=== PATIENT | female | born 1960 | race Two or more races ===

== ENCOUNTER 2022-10-16 16:19 | Inpatient (IN) | payer OTHER ==
[2022-10-16] MEDS ORDERED: ACETAMINOPHEN 1000 MG/100 ML BAG IVPB ONE (17:41)
[2022-10-16 17:49] LABS: BASO % 0.5 % (0-2.0); EOS % 2.4 % (0-4.5); HEMOGLOBIN 10.5 GM/dL (10.7-15.3); LYMPH % 20.9 % (8-40); MCH 29.2 pg (25.7-33.7); MEAN PLT VOLUME 8.4 fl (7.5-11.1); MONO % 7.4 % (3.8-10.2); NEUT % 68.8 % (42.8-82.8); PLATELET COUNT 240 10^3/uL (134-434); RDW 14.2 % (11.6-15.6); WHITE BLOOD COUNT 7.8 K/mm3 (4.0-10.0)
[2022-10-16] MEDS ORDERED: ACETAMINOPHEN INJECTION 100 ML IVPB ONE (17:51)
[2022-10-16] MEDS ORDERED: guaiFENesin 600 MG TABLET.ER (FP) PO ONE (18:21)
[2022-10-16 18:26] LABS: CALCIUM 9.1 mg/dL (8.5-10.1)
[2022-10-16 18:27] LABS: ALBUMIN 3.2 g/dl (3.4-5.0); BLOOD UREA NITROGEN 46.4 mg/dL (7-18); MAGNESIUM 1.9 mg/dL (1.8-2.4)
[2022-10-16 18:30] LABS: CREATININE 1.6 mg/dL (0.55-1.3)
[2022-10-16 18:31] LABS: BILIRUBIN,TOTAL 0.4 mg/dL (0.2-1); TOT PROT 6.8 g/dl (6.4-8.2)
[2022-10-16 20:06] LABS: INR 0.97 (0.83-1.09); PROTHROMBIN TIME (PATIENT) 11.2 SEC (9.7-13.0)
[2022-10-16 20:08] LABS: ACTIVATED PTT 27.9 SECONDS (25.2-36.5)
[2022-10-16 20:13] LABS: PHOSPHOROUS 3.5 mg/dL (2.5-4.9)
[2022-10-16 20:18] LABS: N-TERMINAL BNP 4097.7 pg/ml (5-125)
[2022-10-16] MEDS ORDERED: LISINOPRIL 10 MG TABLET ONE (22:20)
[2022-10-16] MEDS ORDERED: HEPARIN NA (PORCINE) 5,000 UNITS/ML 1ML VIAL ONE (22:20)
[2022-10-16] MEDS: HEPARIN NA (PORCINE) 5,000 UNITS/ML 1ML VIAL SQ SCH (22:30)
[2022-10-16] MEDS: LISINOPRIL 10 MG TABLET PO SCH (22:30)
[2022-10-16 23:02] LABS: RETICULOCYTES 0.98 % (0.5-1.5)
[2022-10-17 01:26] LABS: COCAINE, UR NEGATIVE (NEGATIVE); METHADONE, UR NEGATIVE (NEGATIVE); OPIATES, URI NEGATIVE (NEGATIVE); PHENCYCLIDINE,URINE NEGATIVE (NEGATIVE); URINE AMPHETAMINES NEGATIVE (NEGATIVE); URINE APPEARANCE CLEAR; URINE BARBITURATES NEGATIVE (NEGATIVE); URINE BENZODIAZEPINES NEGATIVE (NEGATIVE); URINE BILIRUBIN NEGATIVE (NEGATIVE); URINE COLOR YELLOW; URINE GLUCOSE (UA) 1+ (NEGATIVE); URINE KETONE NEGATIVE (NEGATIVE); URINE LEUK ESTERASE NEGATIVE (NEGATIVE); URINE NITRITE NEGATIVE (NEGATIVE); URINE PROTEIN NEGATIVE (NEGATIVE); URINE UROBILINOGEN 0.2 mg/dL (0.2-1.0)
[2022-10-17] MEDS: INSULIN SLIDING SCALE (NOVOLOG) 1 VIAL SQ SCH ×3 (06:15→16:54)
[2022-10-17 06:36] LABS: HEMATOCRIT 31.9 % (32.4-45.2); HEMOGLOBIN 10.9 GM/dL (10.7-15.3); MCH 29.4 pg (25.7-33.7); MCHC 34.3 g/dl (32.0-36.0); MEAN CELL VOLUME 85.6 fl (80-96); MEAN PLT VOLUME 8.3 fl (7.5-11.1); PLATELET COUNT 249 10^3/uL (134-434); RBC 3.72 M/mm3 (3.60-5.2); WHITE BLOOD COUNT 4.6 K/mm3 (4.0-10.0)
[2022-10-17 07:06] LABS: CALCIUM 9.3 mg/dL (8.5-10.1)
[2022-10-17 07:07] LABS: ALBUMIN 3.1 g/dl (3.4-5.0); BLOOD UREA NITROGEN 40.9 mg/dL (7-18)
[2022-10-17 07:09] LABS: PHOSPHOROUS 3.9 mg/dL (2.5-4.9)
[2022-10-17 07:10] LABS: CREATININE 1.5 mg/dL (0.55-1.3)
[2022-10-17 07:11] LABS: BILIRUBIN,TOTAL 0.6 mg/dL (0.2-1); TOT PROT 6.7 g/dl (6.4-8.2)
[2022-10-17] MEDS: HEPARIN NA (PORCINE) 5,000 UNITS/ML 1ML VIAL SQ SCH (09:57)
[2022-10-17] MEDS: LISINOPRIL 10 MG TABLET PO SCH (09:58)
[2022-10-17] MEDS ORDERED: LIDOCAINE 5% TOPICAL PATCH TP SCH (10:00)
[2022-10-17] MEDS ORDERED: NICOTINE 7 MG/24 HOURS TOPICAL PATCH TD SCH (10:00)
[2022-10-17] MEDS ORDERED: guaiFENesin 600 MG TABLET.ER (FP) PO ONE (12:01)
[2022-10-17] MEDS ORDERED: LIDOCAINE PATCH REMOVAL MC SCH (22:00)
[2022-10-17] MEDS ORDERED: HEPARIN NA (PORCINE) 5,000 UNITS/ML 1ML VIAL SQ SCH (22:00)
[2022-10-18] MEDS: INSULIN SLIDING SCALE (NOVOLOG) 1 VIAL SQ SCH ×3 (06:01→16:40)
[2022-10-18] MEDS ORDERED: ONDANSETRON 4 MG/2 ML VIAL IVPUSH PRN ×2 (07:25→09:35)
[2022-10-18] MEDS ORDERED: oxyCODONE HCL 5 MG TABLET PO PRN (07:25)
[2022-10-18] MEDS ORDERED: LIDOCAINE HCL 1%, 10 MG/ML (10ML VIAL) MDV ONE (07:34)
[2022-10-18] MEDS ORDERED: BUPIVACAINE HCL/PF 0.5% (5MG/ML) 10 ML VIAL ONE (07:34)
[2022-10-18] MEDS ORDERED: GENTAMICIN SO4 80 MG/2 ML VIAL ONE (07:34)
[2022-10-18] MEDS ORDERED: MIDAZOLAM HCL 2 MG/2 ML SINGLE DOSE VIAL ONE (08:03)
[2022-10-18] MEDS ORDERED: ceFAZolin SODIUM 1 GM VIAL IVPB ONE ×2 (08:05)
[2022-10-18] MEDS ORDERED: LIDOCAINE 1% P/F 10 MG/ML VIAL INF ONE ×2 (08:25)
[2022-10-18] MEDS ORDERED: BUPIVACAINE HCL/PF 0.5% (5 MG/ML) 30 ML VIAL IJ ONE ×2 (08:25)
[2022-10-18] MEDS: LISINOPRIL 10 MG TABLET PO SCH (11:21)
[2022-10-18] MEDS: LIDOCAINE 5% TOPICAL PATCH TP SCH (11:22)
[2022-10-18] MEDS: NICOTINE 7 MG/24 HOURS TOPICAL PATCH TD SCH (11:22)
[2022-10-18 12:54] LABS: HEMATOCRIT 33.5 % (32.4-45.2); HEMOGLOBIN 11.3 GM/dL (10.7-15.3); MCH 29.4 pg (25.7-33.7); MCHC 33.8 g/dl (32.0-36.0); MEAN CELL VOLUME 86.8 fl (80-96); MEAN PLT VOLUME 8.4 fl (7.5-11.1); PLATELET COUNT 258 10^3/uL (134-434); RBC 3.85 M/mm3 (3.60-5.2); RDW 14.2 % (11.6-15.6); WHITE BLOOD COUNT 5.5 K/mm3 (4.0-10.0)
[2022-10-18 13:51] LABS: ALBUMIN 3.1 g/dl (3.4-5.0); BLOOD UREA NITROGEN 48.5 mg/dL (7-18); CALCIUM 8.8 mg/dL (8.5-10.1)
[2022-10-18 13:54] LABS: CREATININE 1.6 mg/dL (0.55-1.3)
[2022-10-18 13:56] LABS: BILIRUBIN,TOTAL 0.5 mg/dL (0.2-1)
[2022-10-18 13:59] LABS: TOT PROT 6.8 g/dl (6.4-8.2)
[2022-10-18 14:04] VITALS: BMI 16.7
[2022-10-18 14:47] LABS: CREATININE, URINE RANDOM < 13.0 mg/dL (30-150)
[2022-10-18] MEDS: oxyCODONE HCL 5 MG TABLET PO PRN ×2 (16:28→21:31)
[2022-10-18] MEDS: LIDOCAINE PATCH REMOVAL MC SCH (21:30)
[2022-10-18] MEDS ORDERED: LIDOCAINE PATCH REMOVAL MC SCH (22:00)
[2022-10-19] MEDS: INSULIN SLIDING SCALE (NOVOLOG) 1 VIAL SQ SCH ×3 (06:14→17:09)
[2022-10-19 07:24] LABS: BASO % 0.5 % (0-2.0); HEMATOCRIT 32.3 % (32.4-45.2); HEMOGLOBIN 11.2 GM/dL (10.7-15.3); LYMPH % 25.1 % (8-40); MCH 29.7 pg (25.7-33.7); MCHC 34.6 g/dl (32.0-36.0); MEAN CELL VOLUME 85.7 fl (80-96); MEAN PLT VOLUME 9.5 fl (7.5-11.1); MONO % 10.2 % (3.8-10.2); NEUT % 60.2 % (42.8-82.8); PLATELET COUNT 233 10^3/uL (134-434); RBC 3.77 M/mm3 (3.60-5.2); RDW 13.7 % (11.6-15.6); WHITE BLOOD COUNT 6.6 K/mm3 (4.0-10.0)
[2022-10-19 07:47] LABS: CALCIUM 9.3 mg/dL (8.5-10.1)
[2022-10-19 07:48] LABS: BLOOD UREA NITROGEN 48.8 mg/dL (7-18); MAGNESIUM 2.1 mg/dL (1.8-2.4)
[2022-10-19 07:50] LABS: PHOSPHOROUS 3.6 mg/dL (2.5-4.9); TOT PROT 6.6 g/dl (6.4-8.2)
[2022-10-19 07:51] LABS: CREATININE 1.5 mg/dL (0.55-1.3)
[2022-10-19 07:52] LABS: BILIRUBIN,TOTAL 0.5 mg/dL (0.2-1)
[2022-10-19] MEDS: LIDOCAINE 5% TOPICAL PATCH TP SCH (09:07)
[2022-10-19] MEDS: NICOTINE 7 MG/24 HOURS TOPICAL PATCH TD SCH (09:07)
[2022-10-19] MEDS: LISINOPRIL 10 MG TABLET PO SCH (09:07)
[2022-10-19] MEDS ORDERED: LISINOPRIL 20 MG TABLET PO SCH (09:43)
[2022-10-19] MEDS: CHLORTHALIDONE 25 MG TABLET PO SCH (10:04)
[2022-10-19] MEDS ORDERED: ACETAMINOPHEN 1000 MG/100 ML BAG IVPB ONE ×2 (20:16)
[2022-10-19] MEDS ORDERED: MELATONIN 5 MG TABLETS PO ONE (20:21)
[2022-10-19] MEDS: LIDOCAINE PATCH REMOVAL MC SCH (21:28)
[2022-10-20] MEDS: INSULIN SLIDING SCALE (NOVOLOG) 1 VIAL SQ SCH ×3 (06:06→16:56)
[2022-10-20] MEDS ORDERED: BENZONATATE 200 MG CAPSULE PO PRN (08:15)
[2022-10-20 08:52] LABS: BLOOD UREA NITROGEN 62.3 mg/dL (7-18); CALCIUM 9.6 mg/dL (8.5-10.1)
[2022-10-20 08:56] LABS: CREATININE 1.8 mg/dL (0.55-1.3)
[2022-10-20] MEDS: NICOTINE 7 MG/24 HOURS TOPICAL PATCH TD SCH (09:30)
[2022-10-20] MEDS: LIDOCAINE 5% TOPICAL PATCH TP SCH (09:30)
[2022-10-20] MEDS: CHLORTHALIDONE 25 MG TABLET PO SCH (09:33)
[2022-10-20] MEDS ORDERED: ALBUTEROL SO4 2.5/IPRATROPIUM 0.5 INH SOL 3 ML VIAL.NEB. NEB ONE (09:40)
[2022-10-20] MEDS ORDERED: guaiFENesin 600 MG TABLET.ER (FP) PO SCH (10:00)
[2022-10-20] MEDS: POLYETHYLENE GLYCOL (HEALTHYLAX) 3350 17 GM PACKET PO SCH ×2 (10:06→21:14)
[2022-10-20 10:19] LABS: BASO % 0.6 % (0-2.0); EOS % 4.7 % (0-4.5); HEMATOCRIT 31.4 % (32.4-45.2); HEMOGLOBIN 10.5 GM/dL (10.7-15.3); LYMPH % 32.5 % (8-40); MCH 28.9 pg (25.7-33.7); MCHC 33.5 g/dl (32.0-36.0); MEAN CELL VOLUME 86.1 fl (80-96); MEAN PLT VOLUME 9.7 fl (7.5-11.1); MONO % 10.4 % (3.8-10.2); NEUT % 51.8 % (42.8-82.8); PLATELET COUNT 215 10^3/uL (134-434); RBC 3.64 M/mm3 (3.60-5.2); RDW 14.1 % (11.6-15.6); WHITE BLOOD COUNT 4.8 K/mm3 (4.0-10.0)
[2022-10-20] MEDS ORDERED: BENZONATATE 100 MG CAPSULE PO PRN (10:19)
[2022-10-20] MEDS ORDERED: ALBUTEROL SO4 2.5/IPRATROPIUM 0.5 INH SOL 3 ML VIAL.NEB. NEB PRN (11:19)
[2022-10-20] MEDS: LIDOCAINE PATCH REMOVAL MC SCH (21:14)
[2022-10-20] MEDS ORDERED: ACETAMINOPHEN 1000 MG/100 ML BAG IVPB ONE (21:39)
[2022-10-20] MEDS: MELATONIN 5 MG TABLETS PO PRN (22:01)
[2022-10-21] MEDS: INSULIN SLIDING SCALE (NOVOLOG) 1 VIAL SQ SCH ×3 (06:08→17:01)
[2022-10-21] MEDS ORDERED: INSULIN SLIDING SCALE (NOVOLOG) 1 VIAL SQ ONE (06:27)
[2022-10-21 08:52] LABS: BASO % 0.9 % (0-2.0); EOS % 4.5 % (0-4.5); HEMATOCRIT 29.8 % (32.4-45.2); HEMOGLOBIN 10.5 GM/dL (10.7-15.3); LYMPH % 23.7 % (8-40); MCH 30.1 pg (25.7-33.7); MCHC 35.2 g/dl (32.0-36.0); MEAN CELL VOLUME 85.6 fl (80-96); MONO % 11.6 % (3.8-10.2); NEUT % 59.3 % (42.8-82.8); PLATELET COUNT 228 10^3/uL (134-434); RBC 3.48 M/mm3 (3.60-5.2); RDW 13.6 % (11.6-15.6); WHITE BLOOD COUNT 5.7 K/mm3 (4.0-10.0)
[2022-10-21 09:06] VITALS: RESP 18
[2022-10-21 09:26] LABS: BLOOD UREA NITROGEN 69.2 mg/dL (7-18); CALCIUM 9.3 mg/dL (8.5-10.1); MAGNESIUM 2.5 mg/dL (1.8-2.4)
[2022-10-21 09:29] LABS: CREATININE 1.8 mg/dL (0.55-1.3)
[2022-10-21 09:30] LABS: PHOSPHOROUS 4.7 mg/dL (2.5-4.9)
[2022-10-21] MEDS: CHLORTHALIDONE 25 MG TABLET PO SCH (09:30)
[2022-10-21] MEDS: POLYETHYLENE GLYCOL (HEALTHYLAX) 3350 17 GM PACKET PO SCH ×2 (09:30→22:09)
[2022-10-21 09:31] LABS: BILIRUBIN,TOTAL 0.7 mg/dL (0.2-1); TOT PROT 6.6 g/dl (6.4-8.2)
[2022-10-21] MEDS: LIDOCAINE 5% TOPICAL PATCH TP SCH (09:31)
[2022-10-21] MEDS: NICOTINE 7 MG/24 HOURS TOPICAL PATCH TD SCH (09:31)
[2022-10-21] MEDS: guaiFENesin 600 MG TABLET.ER (FP) PO SCH (21:35)
[2022-10-21] MEDS: MELATONIN 5 MG TABLETS PO PRN (21:35)
[2022-10-21] MEDS ORDERED: INSULIN (NOVOLOG) ASPART 100 UNITS/ML 10ML VIAL SQ ONE (21:51)
[2022-10-21] MEDS: LIDOCAINE PATCH REMOVAL MC SCH (22:09)
[2022-10-21] MEDS: ACETAMINOPHEN 325 MG TABLET (FP) PO PRN (22:14)
[2022-10-21] MEDS ORDERED: BENZONATATE 200 MG CAPSULE PO PRN (23:36)
[2022-10-22] MEDS: ACETAMINOPHEN 325 MG TABLET (FP) PO PRN ×2 (02:58→11:17)
[2022-10-22] MEDS: INSULIN SLIDING SCALE (NOVOLOG) 1 VIAL SQ SCH ×3 (06:37→17:09)
[2022-10-22] MEDS: guaiFENesin 600 MG TABLET.ER (FP) PO SCH (09:17)
[2022-10-22] MEDS: POLYETHYLENE GLYCOL (HEALTHYLAX) 3350 17 GM PACKET PO SCH (09:17)
[2022-10-22] MEDS: NICOTINE 7 MG/24 HOURS TOPICAL PATCH TD SCH (09:18)
[2022-10-22] MEDS: CHLORTHALIDONE 25 MG TABLET PO SCH (09:18)
[2022-10-22] MEDS: LIDOCAINE 5% TOPICAL PATCH TP SCH (09:20)
[2022-10-22] MEDS ORDERED: SODIUM CHLORIDE 1 GM TABLET PO SCH (10:30)
[2022-10-22] MEDS ORDERED: amLODIPine BESYLATE 5 MG TABLET (FP) PO SCH (10:30)
[2022-10-22] MEDS ORDERED: predniSONE 20 MG TABLET (UD) PO SCH (14:15)
[2022-10-22] MEDS ORDERED: ALBUTEROL SO4 HFA INHALER IH PRN (14:45)
[2022-10-22 15:57] VITALS: BP 120/78; PULSE 80; TEMP 98
[2022-10-22] MEDS ORDERED: BUDESONIDE/FORMETEROL FUMARATE 80/4.5 mcg INHALER IH SCH (22:00)
== END 2022-10-22 19:34 | DRG 171 ==
LOC: JER 16:19 → JERBED 18:08 → J4S 10-17 02:58
PROVIDERS: ADMIT Internal Medicine; ATTEND Internal Medicine
PROC: 02H63JZ Insertion of Pacemaker Lead into Right Atrium, Percutaneous Approach (ICD-10-PCS; 2022-10-18)
PROC: 02HK3JZ Insertion of Pacemaker Lead into Right Ventricle, Percutaneous Approach (ICD-10-PCS; 2022-10-18)
PROC: 0JH606Z Insertion of Pacemaker, Dual Chamber into Chest Subcutaneous Tissue and Fascia, Open Approach (ICD-10-PCS; principal; 2022-10-18 07:30)
DX: I44.2 Atrioventricular block, complete (principal); D64.9 Anemia, unspecified; F17.210 Nicotine dependence, cigarettes, uncomplicated; N18.9 Chronic kidney disease, unspecified; J45.909 Unspecified asthma, uncomplicated; E11.65 Type 2 diabetes mellitus with hyperglycemia; K59.00 Constipation, unspecified; I12.9 Hypertensive chronic kidney disease with stage 1 through stage 4 chronic kidney disease, or unspecified chronic kidney disease; E11.22 Type 2 diabetes mellitus with diabetic chronic kidney disease; N18.2 Chronic kidney disease, stage 2 (mild); E87.1 Hypo-osmolality and hyponatremia; M25.552 Pain in left hip; Z79.84 Long term (current) use of oral hypoglycemic drugs
CPT/HCPCS: 0241U-QW; 36415; 71045-TC-FY; 71046-TC-FY; 72170-TC-FY; 76000-TC-FY; 80048; 80053; 80061; 80307; 81003; 82550; 82570; 82962; 83036; 83540; 83550; 83735; 83880; 84100; 84156; 84443; 84484; 85025; 85027; 85045; 85610; 85730; 86618; 93005; 93010; 93306-TC; 94010; 94640; 94760; 97116-GP; 97161-GP; 99285-25; C1769; C1785; C1898; C9803-CS; J1644; U0003; U0005

== ENCOUNTER 2022-12-18 22:49 | Inpatient (IN) | payer OTHER ==
[2022-12-18 23:35] VITALS: BMI 22.1
[2022-12-19 00:37] LABS: BASO % 0.6 % (0-2.0); EOS % 3.3 % (0-4.5); HEMATOCRIT 25.7 % (32.4-45.2); HEMOGLOBIN 9.1 GM/dL (10.7-15.3); LYMPH % 17.2 % (8-40); MCH 29.1 pg (25.7-33.7); MCHC 35.5 g/dl (32.0-36.0); MEAN CELL VOLUME 82.1 fl (80-96); MEAN PLT VOLUME 7.1 fl (7.5-11.1); MONO % 11.5 % (3.8-10.2); NEUT % 67.4 % (42.8-82.8); PLATELET COUNT 220 10^3/uL (134-434); RBC 3.13 M/mm3 (3.60-5.2); RDW 13.7 % (11.6-15.6)
[2022-12-19 00:59] LABS: CHLORIDE 78 mmol/L (98-107)
[2022-12-19 01:01] LABS: ALBUMIN 3.7 g/dl (3.4-5.0); BLOOD UREA NITROGEN 43.6 mg/dL (7-18); CALCIUM 9.1 mg/dL (8.5-10.1); CO2 25 mmol/L (21-32); GLUCOSE,RANDOM 66 mg/dL (74-106)
[2022-12-19 01:04] LABS: CREATININE 1.6 mg/dL (0.55-1.3); SGOT/AST 37 U/L (15-37); SGPT/ALT 25 U/L (13-61)
[2022-12-19 01:06] LABS: BILIRUBIN,TOTAL 0.7 mg/dL (0.2-1)
[2022-12-19 01:07] LABS: ALK PHOS 95 U/L (45-117)
[2022-12-19 01:15] LABS: ANION GAP 13 MMOL/L (8-16); SODIUM 117 mmol/L (136-145)
[2022-12-19] MEDS ORDERED: SODIUM CHLORIDE 1,000 ML IV SCH ×2 (03:00→04:03)
[2022-12-19] MEDS ORDERED: ACETAMINOPHEN 1000 MG/100 ML BAG IVPB ONE (03:38)
[2022-12-19] MEDS: KCL 10 MEQ IVPB 10 MEQ/100 ML INFUS.BAG IVPB SCH ×2 (04:41→07:29)
[2022-12-19] MEDS ORDERED: guaiFENesin/D-M SUGAR-FREE/ACLHOL-FREE (200 MG/10 MG) 5 ML PO PRN (06:10)
[2022-12-19] MEDS ORDERED: ALBUTEROL SO4 2.5/IPRATROPIUM 0.5 INH SOL 3 ML VIAL.NEB. NEB SCH (06:15)
[2022-12-19 06:22] LABS: PHOSPHOROUS 3.5 mg/dL (2.5-4.9)
[2022-12-19 07:41] LABS: INR 0.98 (0.83-1.09); PROTHROMBIN TIME (PATIENT) 11.4 SEC (9.7-13.0)
[2022-12-19 07:43] LABS: ACTIVATED PTT 29.6 SECONDS (25.2-36.5)
[2022-12-19] MEDS ORDERED: ALBUTEROL SO4 2.5/IPRATROPIUM 0.5 INH SOL 3 ML VIAL.NEB. NEB PRN (09:24)
[2022-12-19] MEDS ORDERED: LIDOCAINE 5% TOPICAL PATCH TP SCH (10:00)
[2022-12-19] MEDS ORDERED: LIDOCAINE REMOVAL MC SCH (10:00)
[2022-12-19] MEDS: LOSARTAN POTASSIUM 25 MG TABLET PO SCH (10:27)
[2022-12-19] MEDS: ACETAMINOPHEN 325 MG TABLET (FP) PO PRN ×2 (10:27→19:58)
[2022-12-19 10:55] LABS: POTASSIUM 3.5 mmol/L (3.5-5.1)
[2022-12-19 10:59] LABS: ALBUMIN 3.4 g/dl (3.4-5.0); BLOOD UREA NITROGEN 43.6 mg/dL (7-18); MAGNESIUM 2.3 mg/dL (1.8-2.4)
[2022-12-19 11:02] LABS: CREATININE 1.6 mg/dL (0.55-1.3); PHOSPHOROUS 3.6 mg/dL (2.5-4.9)
[2022-12-19 11:04] LABS: TOT PROT 6.4 g/dl (6.4-8.2)
[2022-12-19] MEDS: ALBUTEROL SO4 2.5/IPRATROPIUM 0.5 INH SOL 3 ML VIAL.NEB. NEB SCH ×3 (11:30→20:42)
[2022-12-19] MEDS ORDERED: FUROSEMIDE 40 MG/4 ML INJECTABLE VIAL IVPUSH ONE (12:21)
[2022-12-19] MEDS: GABAPENTIN 100 MG CAPSULE PO SCH ×2 (14:21→21:35)
[2022-12-19] MEDS: SODIUM CHLORIDE 1 GM TABLET PO SCH ×2 (14:21→21:35)
[2022-12-19 15:35] LABS: EPI CELLS 2 /uL (0-25.1); HYALINE CASTS 0 /uL (0-3.1); PH,URINE 6.5 (5.0-8.0); URINE APPEARANCE CLEAR; URINE BACTERIA 6 /uL (0-1359); URINE BILIRUBIN NEGATIVE (NEGATIVE); URINE COLOR YELLOW; URINE GLUCOSE (UA) NEGATIVE (NEGATIVE); URINE KETONE NEGATIVE (NEGATIVE); URINE LEUK ESTERASE TRACE (NEGATIVE); URINE NITRITE NEGATIVE (NEGATIVE); URINE PROTEIN NEGATIVE (NEGATIVE); URINE RBC 211 /uL (0-23.9); URINE UROBILINOGEN 0.2 mg/dL (0.2-1.0); URINE WBC 4 /uL (0-25.8)
[2022-12-19] MEDS: MELATONIN 1 MG TABLET PO SCH (21:35)
[2022-12-19] MEDS ORDERED: PATIENT'S OWN MEDICATION (NON-FORMULARY) (Lidocaine Patch Removal 1 EACH Each) MC SCH (22:00)
[2022-12-19] MEDS ORDERED: LIDOCAINE PATCH REMOVAL MC SCH ×3 (22:00)
[2022-12-20] MEDS: GABAPENTIN 100 MG CAPSULE PO SCH ×3 (05:43→21:38)
[2022-12-20] MEDS: ALBUTEROL SO4 2.5/IPRATROPIUM 0.5 INH SOL 3 ML VIAL.NEB. NEB SCH ×4 (07:15→20:47)
[2022-12-20 07:27] LABS: BASO % 0.5 % (0-2.0); HEMOGLOBIN 8.9 GM/dL (10.7-15.3); LYMPH % 18.4 % (8-40); MCH 29.8 pg (25.7-33.7); MCHC 35.7 g/dl (32.0-36.0); MEAN CELL VOLUME 83.5 fl (80-96); MEAN PLT VOLUME 8.1 fl (7.5-11.1); MONO % 11.9 % (3.8-10.2); NEUT % 66.2 % (42.8-82.8); PLATELET COUNT 199 10^3/uL (134-434); RDW 13.4 % (11.6-15.6); WHITE BLOOD COUNT 5.9 K/mm3 (4.0-10.0)
[2022-12-20 07:49] LABS: BLOOD UREA NITROGEN 43.1 mg/dL (7-18); CALCIUM 9.1 mg/dL (8.5-10.1)
[2022-12-20 07:53] LABS: CREATININE 1.7 mg/dL (0.55-1.3)
[2022-12-20] MEDS: LOSARTAN POTASSIUM 25 MG TABLET PO SCH (09:29)
[2022-12-20] MEDS: SODIUM CHLORIDE 1 GM TABLET PO SCH ×2 (09:29→21:38)
[2022-12-20] MEDS: ACETAMINOPHEN 325 MG TABLET (FP) PO PRN ×2 (11:39→21:38)
[2022-12-20] MEDS ORDERED: POTASSIUM CHLORIDE ORAL LIQUID 20 MEQ/15 ML PO ONE ×2 (14:00→17:00)
[2022-12-20] MEDS ORDERED: FUROSEMIDE 40 MG/4 ML INJECTABLE VIAL IVPUSH ONE (14:06)
[2022-12-20] MEDS ORDERED: SODIUM CHLORIDE 250 ML IV STA (14:07)
[2022-12-20 18:16] LABS: POTASSIUM 3.8 mmol/L (3.5-5.1)
[2022-12-20 18:17] LABS: CALCIUM 9.2 mg/dL (8.5-10.1)
[2022-12-20 18:18] LABS: BLOOD UREA NITROGEN 42.6 mg/dL (7-18)
[2022-12-20] MEDS: MELATONIN 1 MG TABLET PO SCH (21:38)
[2022-12-21] MEDS: GABAPENTIN 100 MG CAPSULE PO SCH ×3 (05:32→21:54)
[2022-12-21] MEDS: ACETAMINOPHEN 325 MG TABLET (FP) PO PRN ×2 (05:32→11:24)
[2022-12-21 07:08] LABS: POTASSIUM 3.6 mmol/L (3.5-5.1)
[2022-12-21 07:14] LABS: BLOOD UREA NITROGEN 45.3 mg/dL (7-18)
[2022-12-21 07:17] LABS: CREATININE 1.8 mg/dL (0.55-1.3)
[2022-12-21] MEDS: ALBUTEROL SO4 2.5/IPRATROPIUM 0.5 INH SOL 3 ML VIAL.NEB. NEB SCH ×4 (08:15→20:27)
[2022-12-21] MEDS: SODIUM CHLORIDE 1 GM TABLET PO SCH ×2 (09:10→21:54)
[2022-12-21] MEDS: LOSARTAN POTASSIUM 25 MG TABLET PO SCH (09:10)
[2022-12-21] MEDS ORDERED: FUROSEMIDE 20 MG TABLET (FP) PO ONE (12:54)
[2022-12-21] MEDS ORDERED: SODIUM CHLORIDE 500 ML IV STA (12:54)
[2022-12-21 13:13] LABS: POTASSIUM 3.6 mmol/L (3.5-5.1)
[2022-12-21 13:15] LABS: BLOOD UREA NITROGEN 42.8 mg/dL (7-18)
[2022-12-21 13:18] LABS: CREATININE 1.8 mg/dL (0.55-1.3)
[2022-12-21] MEDS ORDERED: POTASSIUM CHLORIDE ORAL LIQUID 20 MEQ/15 ML PO ONE (13:30)
[2022-12-21] MEDS ORDERED: ALBUTEROL SO4 2.5/IPRATROPIUM 0.5 INH SOL 3 ML VIAL.NEB. NEB PRN (16:35)
[2022-12-21] MEDS: guaiFENesin/D-M SUGAR-FREE/ACLHOL-FREE (200 MG/10 MG) 5 ML PO PRN (19:53)
[2022-12-21] MEDS: MELATONIN 1 MG TABLET PO SCH (21:54)
[2022-12-22] MEDS: GABAPENTIN 100 MG CAPSULE PO SCH ×3 (06:37→21:52)
[2022-12-22] MEDS: guaiFENesin/D-M SUGAR-FREE/ACLHOL-FREE (200 MG/10 MG) 5 ML PO PRN ×2 (06:39→19:47)
[2022-12-22] MEDS: ACETAMINOPHEN 325 MG TABLET (FP) PO PRN ×2 (06:47→22:09)
[2022-12-22] MEDS: ALBUTEROL SO4 2.5/IPRATROPIUM 0.5 INH SOL 3 ML VIAL.NEB. NEB SCH ×4 (07:00→20:03)
[2022-12-22 09:14] LABS: POTASSIUM 3.6 mmol/L (3.5-5.1)
[2022-12-22 09:35] LABS: ALBUMIN 3.4 g/dl (3.4-5.0); CALCIUM 9.7 mg/dL (8.5-10.1)
[2022-12-22 09:36] LABS: BLOOD UREA NITROGEN 42.1 mg/dL (7-18); TOT PROT 6.7 g/dl (6.4-8.2)
[2022-12-22 09:38] LABS: BILIRUBIN,TOTAL 0.7 mg/dL (0.2-1); CREATININE 1.7 mg/dL (0.55-1.3)
[2022-12-22] MEDS: LOSARTAN POTASSIUM 25 MG TABLET PO SCH (10:01)
[2022-12-22] MEDS: SODIUM CHLORIDE 1 GM TABLET PO SCH ×2 (10:01→21:53)
[2022-12-22] MEDS: MELATONIN 1 MG TABLET PO SCH (21:53)
[2022-12-23] MEDS: GABAPENTIN 100 MG CAPSULE PO SCH ×3 (05:37→21:10)
[2022-12-23] MEDS: ALBUTEROL SO4 2.5/IPRATROPIUM 0.5 INH SOL 3 ML VIAL.NEB. NEB SCH ×4 (08:07→20:05)
[2022-12-23 09:13] LABS: BASO % 0.5 % (0-2.0); EOS % 4.6 % (0-4.5); HEMATOCRIT 26.1 % (32.4-45.2); HEMOGLOBIN 9.2 GM/dL (10.7-15.3); LYMPH % 17.2 % (8-40); MCH 29.8 pg (25.7-33.7); MCHC 35.1 g/dl (32.0-36.0); MONO % 9.2 % (3.8-10.2); NEUT % 68.5 % (42.8-82.8); PLATELET COUNT 236 10^3/uL (134-434); RBC 3.07 M/mm3 (3.60-5.2); WHITE BLOOD COUNT 7.9 K/mm3 (4.0-10.0)
[2022-12-23] MEDS: LOSARTAN POTASSIUM 25 MG TABLET PO SCH (09:50)
[2022-12-23] MEDS: SODIUM CHLORIDE 1 GM TABLET PO SCH ×2 (09:50→21:11)
[2022-12-23] MEDS: guaiFENesin/D-M SUGAR-FREE/ACLHOL-FREE (200 MG/10 MG) 5 ML PO PRN ×2 (09:53→21:11)
[2022-12-23] MEDS: ACETAMINOPHEN 325 MG TABLET (FP) PO PRN ×2 (09:53→21:10)
[2022-12-23 09:56] LABS: POTASSIUM 4.4 mmol/L (3.5-5.1)
[2022-12-23 09:59] LABS: ALBUMIN 3.5 g/dl (3.4-5.0)
[2022-12-23 10:00] LABS: BLOOD UREA NITROGEN 41.1 mg/dL (7-18); CALCIUM 9.2 mg/dL (8.5-10.1)
[2022-12-23 10:03] LABS: CREATININE 1.7 mg/dL (0.55-1.3)
[2022-12-23 10:05] LABS: TOT PROT 6.6 g/dl (6.4-8.2)
[2022-12-23 10:07] LABS: BILIRUBIN,TOTAL 0.5 mg/dL (0.2-1)
[2022-12-23] MEDS: MELATONIN 1 MG TABLET PO SCH (21:11)
[2022-12-24] MEDS: ACETAMINOPHEN 325 MG TABLET (FP) PO PRN ×2 (04:20→09:46)
[2022-12-24] MEDS: GABAPENTIN 100 MG CAPSULE PO SCH ×3 (05:40→21:19)
[2022-12-24] MEDS: ALBUTEROL SO4 2.5/IPRATROPIUM 0.5 INH SOL 3 ML VIAL.NEB. NEB SCH ×4 (07:25→20:15)
[2022-12-24 08:47] LABS: POTASSIUM 4.1 mmol/L (3.5-5.1)
[2022-12-24 08:49] LABS: BLOOD UREA NITROGEN 34.2 mg/dL (7-18)
[2022-12-24 08:51] LABS: CALCIUM 9.1 mg/dL (8.5-10.1)
[2022-12-24 08:52] LABS: CREATININE 1.6 mg/dL (0.55-1.3)
[2022-12-24] MEDS: SODIUM CHLORIDE 1 GM TABLET PO SCH ×2 (09:46→21:19)
[2022-12-24] MEDS: LOSARTAN POTASSIUM 25 MG TABLET PO SCH (09:46)
[2022-12-24] MEDS: guaiFENesin/D-M SUGAR-FREE/ACLHOL-FREE (200 MG/10 MG) 5 ML PO PRN (09:49)
[2022-12-24] MEDS: MELATONIN 1 MG TABLET PO SCH (21:18)
[2022-12-25 01:49] VITALS: RESP 18
[2022-12-25] MEDS: GABAPENTIN 100 MG CAPSULE PO SCH ×2 (06:02→14:29)
[2022-12-25 06:11] VITALS: BP 122/61; PULSE 88; TEMP 98.8
[2022-12-25] MEDS: ALBUTEROL SO4 2.5/IPRATROPIUM 0.5 INH SOL 3 ML VIAL.NEB. NEB SCH ×3 (08:35→15:30)
[2022-12-25] MEDS: LOSARTAN POTASSIUM 25 MG TABLET PO SCH (11:21)
[2022-12-25] MEDS: SODIUM CHLORIDE 1 GM TABLET PO SCH (11:21)
== END 2022-12-25 17:10 | DRG 425 ==
LOC: JER 22:49 → JERBED 12-19 03:32 → J4W 12-19 08:12 → J8W 12-21 16:52
PROVIDERS: ADMIT Internal Medicine; ATTEND Internal Medicine
DX: E87.1 Hypo-osmolality and hyponatremia (principal); E11.649 Type 2 diabetes mellitus with hypoglycemia without coma; G62.9 Polyneuropathy, unspecified; D64.9 Anemia, unspecified; E87.6 Hypokalemia; I10 Essential (primary) hypertension; M25.552 Pain in left hip; E87.8 Other disorders of electrolyte and fluid balance, not elsewhere classified
CPT/HCPCS: 0241U-QW; 36415; 71045-TC-FY; 74176-TC; 80048; 80053; 81003; 82436; 82533; 82570; 82962; 83735; 83930; 83935; 84100; 84133; 84300; 84443; 85025; 85610; 85730; 87635; 93005; 93010; 93306-TC; 94640; 97116-GP; 97162-GP; 99285-25